=== PATIENT | male | born 1955 | race Caucasian/White ===

== ENCOUNTER 2017-11-10 21:29 | Inpatient (IN) | payer OTHER ==
[~2017-11-10] VITALS: Ht 172.7 cm; Wt 100.0 kg
[~2017-11-10 21:29] MED LIST: ACTOS15 MG PO; AMOXICILLIN875 MG OR; CIPRO750 MG PO; CIPROFLOXACN500 MG PO; GLYBURIDE5 M1 PO; LISINOP/HCTZ1 TAB PO; LORTAB 5 OR; LORTAB5 PO; METFORMIN1000 MG PO; METFORMIN500 MG PO; ROCEPHIN IV; SILVADENE1 % EX; TYLENOL325 MG OR
--- NOTE | 2017-11-10 21:32 | NUR ---
PATIENT TO ROOM 12 VIA EMS STRETCHER. UNDRESSED INTO A GOWN. PLACED ON MONITOR. TRIAGE COMPLETED AT BEDSIDE. AWAITING MD CARMONA.
--- NOTE | 2017-11-10 21:48 | NUR ---
UNABLE TO VERIFY MEDS. PATIENT STATES HE DOESN'T KNOW THE NAMES OF HIS MEDS. ALSO STATES HE DOESN'T ALWAYS TAKE THEM REGULARLY.
[2017-11-10 21:56] LABS: HEMATOCRIT 34.5 % (39.0-50.0); HEMOGLOBIN 11.6 g/dl (14.0-18.0); IMMATURE GRANULOCYTES 0.9 % (0.0-1.0); MEAN CELL VOLUME 93.8 fL CALC (80.0-100.0); MEAN CORPUSCULAR HGB 31.5 pG CALC (26.0-32.0); MEAN CORPUSCULAR HGB CONC 33.6 g/L CALC (32.0-36.0); NEUT# 8.71 thou/uL (1.82-7.42); RED BLOOD COUNT 3.68 mill/uL (4.70-6.10); RED CELL DISTRI WIDTH 11.9 % (11.5-15.5)
[2017-11-10 22:15] LABS: ALBUMIN 3.7 g/dL (3.2-5.0); ALKALINE PHOSPHATASE 197 u/l (38-126); ANION GAP 20 (6-22 (CALC)); BILIRUBIN, TOTAL 0.9 mg/dL (0.0-1.4); BUN 25 mg/dL (8-23); BUN/CREATININE RATIO 24 (12-20 (CALC)); CARBON DIOXIDE 24 mmol/l (22-30); CHLORIDE 99 mmol/l (95-108); CREATININE 1.1 mg/dL (0.7-1.3); GFR > 60 ML/MIN (>=60 (CALC)); GFR FOR AFR.AMER. > 60 ML/MIN (>=60 (CALC)); POTASSIUM 3.8 mmol/l (3.5-5.1); SGOT/AST 36 u/l (19-48); SGPT/ALT 77 u/l (11-66); SODIUM 139 mmol/l (137-146)
[2017-11-10 22:23] LABS: MYOGLOBIN 58 ng/mL (0 - 121)
--- NOTE | 2017-11-10 22:24 | NUR ---
RETURNED FROM CT
--- NOTE | 2017-11-10 22:37 | NUR ---
DR BANKS AT BEDSIDE.
[2017-11-10 23:30] LABS: URINE BILIRUBIN - DIPSTICK NEGATIVE (NEGATIVE); URINE BLOOD DIPSTICK TRACE-INTACT (NEGATIVE); URINE COLOR YELLOW; URINE GLUCOSE - DIPSTICK >=1000 mg/dL (NEGATIVE); URINE KETONE 15 mg/dL (NEGATIVE); URINE LEUK ESTERASE NEGATIVE (NEGATIVE); URINE NITRITE - DIPSTICK NEGATIVE (Negative); URINE PH 5.5 (4.5-8.0); URINE PROTEIN - DIPSTICK >=300 mg/dL (NEG-TRACE)
[2017-11-10 23:34] LABS: URINE CLARITY CLEAR
[2017-11-10 23:39] LABS: URINE BACTERIA FEW hpf; URINE RBC 0-2 RBC/hpf (0-5)
[2017-11-10 23:41] LABS: BARBITURATES NEGATIVE (NEGATIVE); COCAINE NEGATIVE (NEGATIVE); METHADONE NEGATIVE (NEGATIVE); OXCYCODONE NEGATIVE (NEGATIVE); TETRAHYDROCANNABIONOL NEGATIVE (NEGATIVE); TRICYLIC ANTIDEPRESSANTS NEGATIVE (NEGATIVE)
--- NOTE | 2017-11-10 23:55 | NUR ---
PT TO RM 272 WITH RN ON TELE. PT AWAKE AND ALERT.
[2017-11-11] VITALS (10 sets, daily range): BP systolic 156–209; BP diastolic 73–100
--- NOTE | 2017-11-11 00:02 | NUR ---
XRAY AT BEDSIDE FOR R FOOT XRAY.
--- NOTE | 2017-11-11 00:47 | NUR ---
REPORT TO MARIA L DAVIS/SURG
--- NOTE | 2017-11-11 00:50 | NUR ---
KERLIX DRESSING TO BILAT FEET.
--- NOTE | 2017-11-11 00:55 | NUR ---
PT TO 272 WITH RN ON TELE.
--- NOTE | 2017-11-11 00:55 | NUR ---
PATIENT ARRIVED TO THE FLOOR IN STABLE CONDITION VIA STRETCHER AND ACCOMPANIED BY ED NURSE. PATIENT WEIGHED AND SETTLED TO BED. ORIENT PT TO ROOM CALL SYSTEM. BED IN LOW POSITION, CALL LIGHT IN REACH.
--- NOTE | 2017-11-11 04:00 | NUR ---
PT RESTING QUIETLY. NO APPARENT ACUTE CHANGES NOTED IN PT'S CONDITION.
--- NOTE | 2017-11-11 07:00 | NUR ---
BEDSIDE REPORT RECEIVED BY NURSE ANURADHA. PT IS RESTING IN BED AND DENIES NEEDS AT THIS TIME. ORIENTED BY ANDREA MOSQUEDA.
--- NOTE | 2017-11-11 08:00 | NUR ---
ASSESSMENT DONE AND VS CHARTED. RESP ARE EVEN AND NON-LABOR. PT STATED THAT HE DOES NOT HAVE PAIN AT THIS TIME. PT HAS DRESSING IN LEFT AND RIGHT FOOT. SKIN IS WARM TO THE TOUCH. OREINT PT TO CALL LIGHT SYSTEM AND REINFORCE SAFETY PRECAUTIONS. PT VERBALIZED UNDERSTANDING. PT DENIES ANY NEEDS AT THIS TIME.
[2017-11-11 09:45] LABS: CHOLESTEROL HDL RATIO 5.7 (<4.4 (CALC))
--- NOTE | 2017-11-11 11:08 | NUR ---
GLASS BLOWING LATHE OPERATOR IN ROOM TO DRAW PT LABS.
--- NOTE | 2017-11-11 12:56 | NUR ---
PT IS SEMI-FOWLERS IN BED. MEDICATED PT FOR PAIN SEE EMAR. NO S/S OF DISTRESS NOTED. PT DENIES ANY OTHER NEEDS AT THIS TIME.
--- NOTE | 2017-11-11 13:07 | NUR ---
S: CHINO EUGENE is a 62 M who presents with osteomyelitis/sepsis. He has a history of uncontrolled HTN and uncontrolled T2DM. All medications in patient's chart were reviewed. O: VS: BP 156/81, P 84, RR 20,T 99.0 W 100 kg, HT 68 in, Scr= 1.1,CrCl= 65.6 ml/min A: Blood culture is pending. P: Patient is on Cefepime 2 gm IV Q12H. Vancomycin ordered for pharmacy to dose. Start Vancomycin 1 G IV Q12H. Vancomycin trough is drawn before the 4th dose on 11/12/17 at 12:30. Vancomycin goal trough is between 15-20 mcg/ml. Pharmacy will follow and or advise on antibiotics use as needed.
--- NOTE | 2017-11-11 15:10 | NUR ---
DR. CHAVEZ CALLED TO MAKE PT NPO TO DO SURGERY FOR TODAY.
--- NOTE | 2017-11-11 15:20 | NUR ---
Spoke to pt about current medications and BG control. Pt verbalized that he does not understand medications or want to understand medications. Elaborated on the purpose of cefepime, vancomycin, and insulin anyway. Pt denies side effects.
--- NOTE | 2017-11-11 15:25 | NUR ---
KRISTINA IN TO ASSESS PT RIGHT AND LEFT FOOT. DRESSING REMOVED WITH DRY DRAIN AND A ODOR TO RIGHT FOOT FROM ULCERS.
[2017-11-11] MEDS ORDERED: METFORMIN500 MG PO (15:45)
--- NOTE | 2017-11-11 15:45 | NUR ---
BARBARA,FROM OR HERE FOR PT.
--- NOTE | 2017-11-11 16:00 | NUR ---
PT DOWN TO OR VIA STRETCHER BY ANDREA JIMENEZ.
--- NOTE | 2017-11-11 18:18 | NUR ---
PT BACK FROM OR VIA STRETCHER BY ANDREA JIMENEZ. BEDSIDE REPORT RECEIVED.
--- NOTE | 2017-11-11 19:00 | NUR ---
CHANGE OF SHIFT REPORT RECEIVED FROM ANDREA TREVIÑO. PATIENT SITTING UP IN BED AND HAVING SUPPER. DENIES PAIN. CONTINUOUS VITAL SIGNS MONITORING IN PLACE. NO APPARENT ACUTE DISTRESS NOTED. WILL CONTINUE TO MONITOR.
--- NOTE | 2017-11-11 20:04 | NUR ---
TRANDATE 10MG IVP GIVEN OVER 5 MINUTES FOR BP 209/100. WILL CONTINUE TO MONITOR.
--- NOTE | 2017-11-12 00:49 | NUR ---
ICE PACK APPLIED UNDER ARM FOR FEVER
[2017-11-12 04:00] VITALS: BP 167/85
--- NOTE | 2017-11-12 04:00 | NUR ---
PATIENT RESTING QUIETLY. NO APPARENT ACUTE CHANGES NOTED IN PATIENT'S CONDITION.
[2017-11-12 05:22] LABS: MEAN CELL VOLUME 94.3 fL CALC (80.0-100.0); MEAN CORPUSCULAR HGB 31.4 pG CALC (26.0-32.0); MEAN CORPUSCULAR HGB CONC 33.3 g/L CALC (32.0-36.0); PLATELET COUNT 298 thou/uL (130-400); RED BLOOD COUNT 3.18 mill/uL (4.70-6.10); RED CELL DISTRI WIDTH 12.3 % (11.5-15.5)
[2017-11-12 05:27] LABS: ANION GAP 14 (6-22 (CALC)); BUN 18 mg/dL (8-23); BUN/CREATININE RATIO 23 (12-20 (CALC)); CARBON DIOXIDE 23 mmol/l (22-30); CHLORIDE 110 mmol/l (95-108); CREATININE 0.8 mg/dL (0.7-1.3); GFR > 60 ML/MIN (>=60 (CALC)); GFR FOR AFR.AMER. > 60 ML/MIN (>=60 (CALC)); MAGNESIUM 2.1 mg/dL (1.6-2.3); POTASSIUM 3.7 mmol/l (3.5-5.1); SODIUM 144 mmol/l (137-146)
[2017-11-12 06:13] LABS: MANUAL DIFFERENTIAL YES
[2017-11-12 06:14] LABS: BAND 2 % (0-8); PLATELET ESTIMATE NORMAL
[2017-11-12 07:00] VITALS: BP 170/84
--- NOTE | 2017-11-12 07:00 | NUR ---
RECEIVED BEDSIDE REPORT FROM MARIA L MENDEZ. RESTING IN BED WITH RIGHT FOOT ELEVATED ON PILLOWS, DRESSING TO RIGHT FOOT CDI, VINICIUS WRAP INTACT, ICE PACK TO RIGHT ANKLE. LEFT FOOT WOUND VOCATIONAL CASE MANAGER. #16 RAC INFUSING WITHOUT DIFFICULTY, SITE APPEARS HEALTHY. RESPS EVEN AND UNLABORED ON O2 VIA NC, TELE MONITOR IN PLACE. DENIES PAIN OR DISCOMFORT. PLAN OF CARE DISCUSSED. SAFETY PRECAUTIONS REINFORCED. BED IN LOWEST POSITION WITH WHEELS LOCKED. CALL LIGHT WITHIN REACH. WILL CONTINUE TO MONITOR.
--- NOTE | 2017-11-12 07:00 | NUR ---
PT ASSESSMENT COMPLETE. PT ALERT, ORIENTED X3. SPEECH IS CLEAR. FACE SYMMETRICAL. PUPILS EQUAL AND REACTIVE TO LIGHT. GOOD SKIN TURGOR. SKIN WARM, DRY. PTS HAS BLANCHING OF THE FINGER TIPS. PTS HANDS AND FEET ARE COOL TO TOUCH, SLUGGISH CAPILLARY REFILL. PT HAS GOOD APICAL, RADIAL PULSES. WEAK RT AND LT PEDAL PULSES. STRONG UPPER AND LOWER EXTREMITIES. PT STATES NUMBNESS TO LOWER EXTREMITIES THAT EXTENDS INTO LOWER CALVES. RN AWARE. BOWEL SOUNDS ACTIVE. #16 GUAGE RAC. NO REDNESS OR SWELLING. PT STATES NO PAIN AT THIS TIME. BED IN LOWEST POSITION. SIDE RAILS UP. CALL LIGHT WITHIN REACH. WILL CONTINUE TO MONITOR.
--- NOTE | 2017-11-12 09:00 | NUR ---
PT RESTING IN BED. NOTED ERYTHEMA AND WARMTH TO RT LOWER LEG AND ANKLE REGION. ICE APPLICATION TO PTS RT FOOT. ELEVATED BOTH LOWER EXTREMITIES. DISCUSSED WITH PT THE NEED TO ELEVATE RT LEG TO DECREASE EDEMA. ANDREA GABRIEL.
--- NOTE | 2017-11-12 10:30 | NUR ---
PHYSICAL THERAPY IN WITH PT.
--- NOTE | 2017-11-12 10:30 | NUR ---
ENTERED PTS ROOM TO APPLY DRESSING TO LT FOOT. PT STATES HE THINKS IT WOULD BE BETTER TO GO WITHOUT A DRESSING. DISCUSSED WITH PT THE BENEFITS OF APPLICATION. PT VERBALIZED UNDERSTANDING AND DID NOT REFUSE. OIL AND GAS DRAFTER AND RN DANA CARPENTER APPLIED WET TO DRY DRESSING TO PTS LT DORSAL FOOT PER ORDER. NO DRAINAGE, ODOR, OR ERYTHEMA AT SITE. NOTED BRIGHT RED BLOOD SOAKING THROUGH DRESSING TO RT FOOT AT BASE OF TOES VENTRAL SURFACE. MARKED DRESSING AND REINFORCED DRESSING ORDERED. PT DENIES PAIN AND MAINTAINED ELEVATION OF RT FOOT. AND REINFORCED ELEVATION WITH PT. PT HAD BEEN ON O2 AT 3L AND MAINTAINING O2 STAT AT 98% WITHOUT DYSPNEA OR SOB. DECREASED O2 TO 2LPM. REASSESSED O2 WITHIN 30 MIN PT MAINTAINED O2 STAT AT 96% WITHOUT DYSPNEA OR SOB.
[2017-11-12 11:40] VITALS: BP 199/98
--- NOTE | 2017-11-12 11:50 | NUR ---
RESTING IN HIGH FOWLERS WITH RIGHT FOOT ELEVATED ON PILLOWS. DRESSING TO RIGHT FOOT CDI WITH ICE PACK TO RIGHT ANKLE. RESPS EVEN AND UNLABORED ON O2 VIA NC, TELE MONITOR IN PLACE. MEDICATED WITH HYDRALAZINE IVP FOR BP 199/98 AND TYLENOL PO FOR TYMPANIC TEMP 100.4. DENIES PAIN OR DISCOMFORT. CALL LIGHT WITHIN REACH. WILL CONTINUE TO MONITOR.
--- NOTE | 2017-11-12 12:30 | NUR ---
LAB INTO OBTAIN BLOOD. REPORTED TO NURSE PT UNABLE TO SIT STILL FROM CONSTANT COUGHING. ASSISTED PT IN HIGH FOWLERS, VITAL SIGNS OBTAINED. KRISTINA MENDENHALL NOTIFIED, NEW ORDERS RECEIVED.
[2017-11-12 12:59] VITALS: BP 219/103
--- NOTE | 2017-11-12 12:59 | NUR ---
HYDRALAZINE 10MG IVP FOR BP 219/103 WITH HEART RATE 133.
[2017-11-12 13:05] VITALS: BP 124/63
[2017-11-12 13:10] VITALS: BP 134/74
--- NOTE | 2017-11-12 13:10 | NUR ---
DR CHAVEZ IN WITH PT, NO NEW ORDERS RECEIVED.
--- NOTE | 2017-11-12 14:26 | NUR ---
S: CHINO EUGENE is a 62 M who presents with osteomyelitis and sepsis. He has a history of uncontrolled T2DM. All medications in patient's chart were reviewed. O: VS: BP 134/74, P 122, RR 24,T 100.5 W 100kg, HT 68 in, Scr= 0.8,CrCl= 106.9 ml/min A: Preliminary blood culture shows gram negative rods. Preliminary wound culture shows gram negative rods. P: Patient is on cefepime 2 g IV q8h and metronidazole 500 mg IV q8h. Vancomycin ordered for pharmacy to dose. Increase Vancomycin dose to 1250 mg IV Q8H. Vancomycin trough is drawn before the 4th dose on 11/13/17 at 15:30. Vancomycin goal trough is between 15-20 mcg/ml. Pharmacy will follow and or advise on antibiotics use as needed.
--- NOTE | 2017-11-12 14:30 | NUR ---
RESTING IN BED WITH EYES CLOSED, AWAKENS EASILY. RESPS LABORED ON O2 VIA NC, TELE MONITOR IN PLACE. DENIES PAIN OR DISCOMFORT. MEDICATED WITH TORADOL IVP FOR TYMPANIC TEMP 103.0. #20 RFA INFUSING WITHOUT DIFFICULTY, SITE APPEARS HEALTHY. CALL LIGHT WITHIN REACH. WILL CONTINUE TO MONITOR.
--- NOTE | 2017-11-12 15:29 | NUR ---
Saw pt for med education rounds. Pt is diaphoretic and has rapid, shallow breathing. Pt seems to doze off while talking. Explained to pt the added antibiotics. Pt stated no side effects, questions, or concerns.
--- NOTE | 2017-11-12 19:20 | NUR ---
Discharge instructions given. Patient verbalizes understanding of same. Discharged in fair condition via Medical Transport to *Other with *Other. All belongings sent with pt. TO [facility] VIA [facility]
--- NOTE | 2017-11-12 19:30 | NUR ---
NURSE TO NURSE REPORT CALLED TO THIERNO MENDEZ AT [facility].
--- NOTE | 2017-11-14 11:17 | NUR ---
FAXED FINAL CULTURE RESULTS TO NOEMI MENDEZ AT [facility] FLOOR 8 FAX#[phone] [id number]
== END 2017-11-12 19:20 | disposition short-term general hospital (02) | DRG 853 ==
LOC: ED 21:29 → ED-I 23:29 → ED 11-11 00:27 → MS2 11-11 00:28
PROVIDERS: Emergency Medicine; Nurse Practitioner Family; ADMIT Internal Medicine; ATTEND Internal Medicine
PROC: 0J9Q0ZZ Drainage of Right Foot Subcutaneous Tissue and Fascia, Open Approach (ICD-10-PCS; principal; 2017-11-11)
PROC: 0QBN0ZX Excision of Right Metatarsal, Open Approach, Diagnostic (ICD-10-PCS; 2017-11-11)
DX: A41.9 Sepsis, unspecified organism (principal); A48.0 Gas gangrene; E11.52 Type 2 diabetes mellitus with diabetic peripheral angiopathy with gangrene; E11.42 Type 2 diabetes mellitus with diabetic polyneuropathy; M86.171 Other acute osteomyelitis, right ankle and foot; L03.115 Cellulitis of right lower limb; E11.69 Type 2 diabetes mellitus with other specified complication; E11.621 Type 2 diabetes mellitus with foot ulcer; I11.0 Hypertensive heart disease with heart failure; I50.9 Heart failure, unspecified; B96.89 Other specified bacterial agents as the cause of diseases classified elsewhere; L97.529 Non-pressure chronic ulcer of other part of left foot with unspecified severity; L97.519 Non-pressure chronic ulcer of other part of right foot with unspecified severity; E11.65 Type 2 diabetes mellitus with hyperglycemia; E11.628 Type 2 diabetes mellitus with other skin complications; Z79.84 Long term (current) use of oral hypoglycemic drugs; Z91.14 Patient's other noncompliance with medication regimen; Z89.411 Acquired absence of right great toe
CPT/HCPCS: J0692; J1650; J3370

== ENCOUNTER 2017-12-22 14:40 | Inpatient (IN) | payer MEDICARE ==
[~2017-12-22] VITALS: Ht 172.7 cm; Wt 86.6 kg
[2017-12-22 15:37] VITALS: BP 134/53
[2017-12-22 19:35] VITALS: BP 141/85
[2017-12-23 05:10] LABS: HEMATOCRIT 27.4 % (39.0-50.0); HEMOGLOBIN 8.9 g/dl (14.0-18.0); MEAN CELL VOLUME 91.9 fL CALC (80.0-100.0); MEAN CORPUSCULAR HGB 29.9 pG CALC (26.0-32.0); MEAN CORPUSCULAR HGB CONC 32.5 g/L CALC (32.0-36.0); RED BLOOD COUNT 2.98 mill/uL (4.70-6.10); RED CELL DISTRI WIDTH 13.2 % (11.5-15.5)
[2017-12-23 05:22] VITALS: BP 146/80
[2017-12-23 05:30] LABS: ANION GAP 16 (6-22 (CALC)); BUN 12 mg/dL (8-23); BUN/CREATININE RATIO 12 (12-20 (CALC)); CARBON DIOXIDE 28 mmol/l (22-30); CHLORIDE 102 mmol/l (95-108); CREATININE 0.9 mg/dL (0.7-1.3); GFR > 60 ML/MIN (>=60 (CALC)); GFR FOR AFR.AMER. > 60 ML/MIN (>=60 (CALC)); MAGNESIUM 1.7 mg/dL (1.6-2.3); POTASSIUM 4.1 mmol/l (3.5-5.1); SODIUM 142 mmol/l (137-146)
[2017-12-23 07:25] VITALS: BP 137/73
[2017-12-23 12:00] VITALS: BP 175/77
[2017-12-23 16:00] VITALS: BP 175/86
[2017-12-23 20:40] VITALS: BP 167/78
[2017-12-24 04:55] VITALS: BP 140/64
[2017-12-24 07:01] LABS: HEMATOCRIT 27.1 % (39.0-50.0); HEMOGLOBIN 8.7 g/dl (14.0-18.0); MEAN CELL VOLUME 91.6 fL CALC (80.0-100.0); MEAN CORPUSCULAR HGB 29.4 pG CALC (26.0-32.0); MEAN CORPUSCULAR HGB CONC 32.1 g/L CALC (32.0-36.0); RED BLOOD COUNT 2.96 mill/uL (4.70-6.10); RED CELL DISTRI WIDTH 13.3 % (11.5-15.5)
[2017-12-24 07:17] LABS: ALBUMIN 3.1 g/dL (3.2-5.0); ALKALINE PHOSPHATASE 115 u/l (38-126); ANION GAP 15 (6-22 (CALC)); BILIRUBIN, TOTAL 0.3 mg/dL (0.0-1.4); BUN 12 mg/dL (8-23); BUN/CREATININE RATIO 14 (12-20 (CALC)); CARBON DIOXIDE 28 mmol/l (22-30); CHLORIDE 105 mmol/l (95-108); CREATININE 0.9 mg/dL (0.7-1.3); GFR > 60 ML/MIN (>=60 (CALC)); GFR FOR AFR.AMER. > 60 ML/MIN (>=60 (CALC)); POTASSIUM 3.8 mmol/l (3.5-5.1); SGOT/AST 15 u/l (19-48); SGPT/ALT 35 u/l (11-66); SODIUM 143 mmol/l (137-146); TOTAL PROTEIN 6.1 g/dL (6.3-8.2)
[2017-12-24 07:42] VITALS: BP 136/67
[2017-12-24 15:05] VITALS: BP 140/71
[2017-12-24 19:28] VITALS: BP 138/70
[2017-12-25 04:40] VITALS: BP 155/73
[2017-12-25 06:03] LABS: ANION GAP 19 (6-22 (CALC)); BUN 12 mg/dL (8-23); BUN/CREATININE RATIO 11 (12-20 (CALC)); CARBON DIOXIDE 28 mmol/l (22-30); CHLORIDE 103 mmol/l (95-108); CREATININE 1.1 mg/dL (0.7-1.3); GFR > 60 ML/MIN (>=60 (CALC)); GFR FOR AFR.AMER. > 60 ML/MIN (>=60 (CALC)); POTASSIUM 4.2 mmol/l (3.5-5.1); SODIUM 146 mmol/l (137-146)
[2017-12-25 06:05] LABS: HEMATOCRIT 29.5 % (39.0-50.0); HEMOGLOBIN 9.5 g/dl (14.0-18.0); IMMATURE GRANULOCYTES 0.3 % (0.0-1.0); MEAN CELL VOLUME 93.1 fL CALC (80.0-100.0); MEAN CORPUSCULAR HGB CONC 32.2 g/L CALC (32.0-36.0); NEUT# 3.45 thou/uL (1.82-7.42); RED BLOOD COUNT 3.17 mill/uL (4.70-6.10); RED CELL DISTRI WIDTH 13.4 % (11.5-15.5)
[2017-12-25 07:47] VITALS: BP 127/64
[2017-12-25 07:49] VITALS: BP 127/64
[2017-12-25] MEDS ORDERED: LISINOPRIL20 M1 PO (12:01)
[2017-12-25] MEDS ORDERED: LEVEMIR100 UNIT/M SC (12:01)
[2017-12-25] MEDS ORDERED: OXYCODONE/ACETA1 TA8 PO (12:01)
[2017-12-25] MEDS ORDERED: NOVOLOG100 UNIT/M SC (12:01)
== END 2017-12-25 13:45 | DRG 638 ==
LOC: MS2 14:40
PROVIDERS: Internal Medicine; Nurse Practitioner Family; ADMIT Internal Medicine; ATTEND Internal Medicine
DX: E11.69 Type 2 diabetes mellitus with other specified complication (principal); M86.9 Osteomyelitis, unspecified; E11.42 Type 2 diabetes mellitus with diabetic polyneuropathy; E11.621 Type 2 diabetes mellitus with foot ulcer; E11.51 Type 2 diabetes mellitus with diabetic peripheral angiopathy without gangrene; L03.115 Cellulitis of right lower limb; L97.428 Non-pressure chronic ulcer of left heel and midfoot with other specified severity; E11.628 Type 2 diabetes mellitus with other skin complications; L97.519 Non-pressure chronic ulcer of other part of right foot with unspecified severity; I10 Essential (primary) hypertension; Z89.431 Acquired absence of right foot; B96.20 Unspecified Escherichia coli [E. coli] as the cause of diseases classified elsewhere; Z85.51 Personal history of malignant neoplasm of bladder; Z92.21 Personal history of antineoplastic chemotherapy
CPT/HCPCS: J3370

== ENCOUNTER → 2018-07-09 | Outpatient (REF) | payer MEDICARE ==
[~2018-07-09] MED LIST changes: +DIFLUCAN100 M1; +DOCUSATE CAL240 MG PO; +FERR SULFATE325 MG PO; +KLOR-CON M2020 MEQ PO; +LEVEMIR100 UNIT/M SC; +LISINOPRIL20 M1 PO; +NOVOLOG100 UNIT/M SC; +OXYCODONE/ACETA1 TA8 PO; +PROTONIX40 M2 PO
[2018-07-09 08:59] LABS: HEMATOCRIT 41.3 % (39.0-50.0); IMMATURE GRANULOCYTES 0.3 % (0.0-5.0); MEAN CELL VOLUME 88.2 fL CALC (80.0-100.0); MEAN CORPUSCULAR HGB 27.8 pG CALC (26.0-32.0); MEAN CORPUSCULAR HGB CONC 31.5 g/L CALC (32.0-36.0); NEUT# 3.77 thou/uL (1.82-7.42); RED BLOOD COUNT 4.68 mill/uL (4.70-6.10); RED CELL DISTRI WIDTH 13.2 % (11.5-15.5)
[2018-07-09 09:11] LABS: ALBUMIN 4.2 g/dL (3.2-5.0); ALKALINE PHOSPHATASE 78 u/l (38-126); ANION GAP 15 (6-22 (CALC)); BILIRUBIN, TOTAL 0.6 mg/dL (0.0-1.4); BUN 27 mg/dL (8-23); BUN/CREATININE RATIO 23 (12-20 (CALC)); CALCULATED LDLCHOLESTEROL 93 mg/dL (62-129 (CALC)); CARBON DIOXIDE 29 mmol/l (22-30); CHLORIDE 103 mmol/l (95-108); CHOLESTEROL HDL RATIO 3.8 (<4.4 (CALC)); CREATININE 1.2 mg/dL (0.7-1.3); GFR > 60 ML/MIN (>=60 (CALC)); GFR FOR AFR.AMER. > 60 ML/MIN (>=60 (CALC)); HDL CHOLESTEROL 44 mg/dL (>=40); POTASSIUM 4.8 mmol/l (3.5-5.1); SGOT/AST 18 u/l (19-48); SODIUM 142 mmol/l (137-146); TOTAL CHOLESTEROL 169 mg/dl (0-199); TOTAL PROTEIN 7.1 g/dL (6.3-8.2); TOTAL TRIGLYCERIDES 160 mg/dl (30-149); VLDL CHOLESTROL 32 mg/dl (4-45 (CALC))
== END | disposition home or self-care (01) ==
LOC: LAB 07:27
PROVIDERS: ATTEND Internal Medicine
DX: E11.65 Type 2 diabetes mellitus with hyperglycemia (principal); E78.1 Pure hyperglyceridemia; D72.1 Eosinophilia

== ENCOUNTER 2019-06-07 10:03 | Inpatient (IN) | payer MEDICARE ==
[~2019-06-07] VITALS: Ht 172.7 cm; Wt 88.0 kg
[2019-06-07] MEDS ORDERED: CIPROFLOXACN250 MG PO (10:19)
[2019-06-07] MEDS ORDERED: JARDIANCE25 MG (10:20)
[2019-06-07] MEDS ORDERED: OCUVITE PO (10:21)
[2019-06-07] MEDS ORDERED: LISINOPRIL5 MG PO (10:21)
[2019-06-07 10:35] LABS: HEMATOCRIT 37.4 % (39.0-50.0); HEMOGLOBIN 11.9 g/dl (14.0-18.0); IMMATURE GRANULOCYTES 0.6 % (0.0-5.0); MEAN CELL VOLUME 90.6 fL CALC (80.0-100.0); MEAN CORPUSCULAR HGB 28.8 pG CALC (26.0-32.0); MEAN CORPUSCULAR HGB CONC 31.8 g/L CALC (32.0-36.0); NEUT# 5.42 thou/uL (1.82-7.42); RED BLOOD COUNT 4.13 mill/uL (4.70-6.10); RED CELL DISTRI WIDTH 13.8 % (11.5-15.5)
[2019-06-07 10:59] LABS: ALBUMIN 4.4 g/dL (3.2-5.0); CREATININE 1.8 mg/dL (0.7-1.3); POTASSIUM 4.2 mmol/l (3.5-5.1); TOTAL PROTEIN 7.8 g/dL (6.3-8.2)
[2019-06-07 11:09] LABS: BILIRUBIN, TOTAL 0.3 mg/dL (0.0-1.4)
[2019-06-07 11:10] LABS: C-REACTIVE PROTEIN 26.2 mg/dL (0-0.9); MAGNESIUM 2.5 mg/dL (1.6-2.3)
[2019-06-07 12:35] VITALS: BP 169/80
[2019-06-07 15:33] VITALS: BP 155/77
[2019-06-07 19:35] VITALS: BP 156/78
[2019-06-08 04:04] VITALS: BP 174/79
[2019-06-08 04:52] LABS: HEMATOCRIT 37.4 % (39.0-50.0); HEMOGLOBIN 11.7 g/dl (14.0-18.0); MEAN CELL VOLUME 92.3 fL CALC (80.0-100.0); MEAN CORPUSCULAR HGB 28.9 pG CALC (26.0-32.0); MEAN CORPUSCULAR HGB CONC 31.3 g/L CALC (32.0-36.0); RED BLOOD COUNT 4.05 mill/uL (4.70-6.10); RED CELL DISTRI WIDTH 13.6 % (11.5-15.5)
[2019-06-08 05:09] LABS: ANION GAP 17 (6-22 (CALC)); BUN 23 mg/dL (8-23); BUN/CREATININE RATIO 20 (12-20 (CALC)); CARBON DIOXIDE 19 mmol/l (22-30); CHLORIDE 113 mmol/l (95-108); CREATININE 1.2 mg/dL (0.7-1.3); GFR > 60 ML/MIN (>=60 (CALC)); GFR FOR AFR.AMER. > 60 ML/MIN (>=60 (CALC)); SODIUM 145 mmol/l (137-146)
[2019-06-08 08:13] VITALS: BP 156/71
== END 2019-06-08 14:46 | DRG 638 ==
LOC: ED 10:03 → ED-I 11:28 → ED 11:40 → MS2 11:41
PROVIDERS: Family Medicine; ADMIT Internal Medicine; ATTEND Internal Medicine
DX: E11.69 Type 2 diabetes mellitus with other specified complication (principal); M86.671 Other chronic osteomyelitis, right ankle and foot; L97.416 Non-pressure chronic ulcer of right heel and midfoot with bone involvement without evidence of necrosis; E11.621 Type 2 diabetes mellitus with foot ulcer; N17.9 Acute kidney failure, unspecified; I12.9 Hypertensive chronic kidney disease with stage 1 through stage 4 chronic kidney disease, or unspecified chronic kidney disease; E11.22 Type 2 diabetes mellitus with diabetic chronic kidney disease; N18.9 Chronic kidney disease, unspecified; Z79.84 Long term (current) use of oral hypoglycemic drugs; Z89.431 Acquired absence of right foot
CPT/HCPCS: J3370

== ENCOUNTER 2020-07-18 13:08 | Emergency (ER) | payer MEDICARE ==
[~2020-07-18] VITALS: Ht 172.7 cm; Wt 81.0 kg
[~2020-07-18 13:08] MED LIST changes: +CIPROFLOXACN250 MG PO; +FLUCONAZOLE100 MG PO; +JARDIANCE25 MG PO; +LISINOPRIL5 MG PO; +METFORMIN500 M2 PO; +OCUVITE PO
[2020-07-18] MEDS ORDERED: NORCO1 TA1 PO (14:16)
[2020-07-18 14:25] LABS: PROTHROMBIN TIME 10.4 SECONDS (9.0-12.5)
[2020-07-18 14:27] LABS: ALBUMIN 3.6 g/dL (3.2-5.0); ANION GAP 24 (6-22 (CALC)); BUN 57 mg/dL (8-23); BUN/CREATININE RATIO 19 (12-20 (CALC)); CARBON DIOXIDE 14 mmol/l (22-30); CHLORIDE 104 mmol/l (95-108); GFR 21 ML/MIN (>=60 (CALC)); GFR FOR AFR.AMER. 25 ML/MIN (>=60 (CALC)); POTASSIUM 4.1 mmol/l (3.5-5.1); SGOT/AST 27 u/l (19-48); SODIUM 138 mmol/l (137-146); TOTAL PROTEIN 7.7 g/dL (6.3-8.2)
[2020-07-18 14:28] LABS: ALKALINE PHOSPHATASE 488 u/l (38-126)
[2020-07-18 14:42] LABS: IMMATURE GRANULOCYTES 0.5 % (0.0-5.0); MEAN CELL VOLUME 90.1 fL CALC (80.0-100.0); MEAN CORPUSCULAR HGB 26.3 pG CALC (26.0-32.0); MEAN CORPUSCULAR HGB CONC 29.2 g/dL CAL (32.0-36.0); NEUT# 10.07 thou/uL (1.82-7.42); RED BLOOD COUNT 2.13 mill/uL (4.70-6.10); RED CELL DISTRI WIDTH 16.2 % (11.5-15.5)
[2020-07-18 14:44] LABS: HEMATOCRIT 19.2 % (39.0-50.0); HEMOGLOBIN 5.6 g/dl (14.0-18.0)
[2020-07-18 14:48] LABS: URINE BILIRUBIN - DIPSTICK NEGATIVE (NEGATIVE); URINE BLOOD DIPSTICK NEGATIVE (NEGATIVE); URINE COLOR YELLOW; URINE GLUCOSE - DIPSTICK >=1000 mg/dL (NEGATIVE); URINE KETONE NEGATIVE (NEGATIVE); URINE LEUK ESTERASE NEGATIVE (NEGATIVE); URINE NITRITE - DIPSTICK NEGATIVE (Negative); URINE PROTEIN - DIPSTICK NEGATIVE (NEG-TRACE); URINE UROBILINOGEN - DIPSTICK 0.2 E.U./dL (0.2)
[2020-07-18 17:22] VITALS: BP 123/56
[2020-07-18 17:37] VITALS: BP 110/69
[2020-07-18 18:00] VITALS: BP 136/78
== END 2020-07-18 18:00 | disposition short-term general hospital (02) ==
LOC: ED 13:08
PROVIDERS: Student in an Organized Health Care Education/Training Program
PROC: 0T9B70Z Drainage of Bladder with Drainage Device, Via Natural or Artificial Opening (ICD-10-PCS; principal; 2020-07-18)
PROC: 30233N1 Transfusion of Nonautologous Red Blood Cells into Peripheral Vein, Percutaneous Approach (ICD-10-PCS; 2020-07-18)
PROC: 02HV33Z Insertion of Infusion Device into Superior Vena Cava, Percutaneous Approach (ICD-10-PCS; 2020-07-18)
PROC: 0BH17EZ Insertion of Endotracheal Airway into Trachea, Via Natural or Artificial Opening (ICD-10-PCS; 2020-07-18)
PROC: 5A1935Z Respiratory Ventilation, Less than 24 Consecutive Hours (ICD-10-PCS; 2020-07-18)
DX: A41.9 Sepsis, unspecified organism (principal); R65.21 Severe sepsis with septic shock; E11.52 Type 2 diabetes mellitus with diabetic peripheral angiopathy with gangrene; I96 Gangrene, not elsewhere classified; E11.69 Type 2 diabetes mellitus with other specified complication; M86.8X7 Other osteomyelitis, ankle and foot; E11.621 Type 2 diabetes mellitus with foot ulcer; L97.526 Non-pressure chronic ulcer of other part of left foot with bone involvement without evidence of necrosis; I95.9 Hypotension, unspecified; D64.9 Anemia, unspecified; I10 Essential (primary) hypertension; Z89.431 Acquired absence of right foot; Z79.84 Long term (current) use of oral hypoglycemic drugs; Z20.828 Contact with and (suspected) exposure to other viral communicable diseases
CPT/HCPCS: J2060; P9016